=== PATIENT | female | born 1955 | race Asian ===

== ENCOUNTER 2019-05-31 21:58 | Emergency (ER) | payer MEDICAID ==
[~2019-05-31] VITALS: Ht 149.9 cm; Wt 56.3 kg
[2019-05-31] MEDS ORDERED: nitroGLYCERIN 0.4mg SUBLingual tab SL PRN (22:00)
[2019-05-31] MEDS ORDERED: aspirin 81mg tab.chew PO ONE (22:00)
--- NOTE | 2019-05-31 22:11 | NUR ---
HAD IBUPROFEN 600MG AND ASPIRIN AT HOME. 81 MG EC
[2019-05-31] MEDS ORDERED: ondansetron/PF 4mg/2ml inj IV ONE (22:15)
[2019-05-31] MEDS ORDERED: morphine 4 MG/ML inj SYRINge IV PRN (22:15)
[2019-05-31] MEDS ORDERED: normal saline 1000ML IV soln IVB ONE (22:15)
[2019-05-31] MEDS ORDERED: MELO-100 PO (22:20)
[2019-05-31] MEDS ORDERED: IBUP-1984 PO (22:20)
[2019-05-31] MEDS ORDERED: GABA-530 PO (22:20)
[2019-05-31] MEDS ORDERED: ASPI-611 PO (22:20)
[2019-05-31 22:29] LABS: BASOPHILS # (AUTO) 0.1 X10'3 (0-0.2); BASOPHILS % (AUTO) 0.6 % (0-1); EOSINOPHILS # (AUTO) 0.1 X10'3 (0-0.9); EOSINOPHILS % (AUTO) 0.6 % (0-6); HEMATOCRIT 42.3 % (35.0-45.0); HEMOGLOBIN 13.8 g/dl (12.0-16.0); LYMPHOCYTES # (AUTO) 2.3 X10'3 (1.1-4.8); MEAN CORPUSCULAR HEMOGLOBIN 27.7 PG (27.0-31.0); MEAN CORPUSCULAR HGB CONC 32.7 g/dL (33.0-36.5); MEAN CORPUSCULAR VOLUME 84.8 FL (78-98); MONOCYTES # (AUTO) 0.9 X10'3 (0-0.9); MONOCYTES % (AUTO) 8.3 % (2-12); NEUTROPHILS # (AUTO) 7.1 X10'3 (1.8-7.7); NEUTROPHILS % (AUTO) 68.5 % (42-75); PLATELET COUNT 202 X10'3 (140-440); RED BLOOD COUNT 4.99 X10'6 (4.20-5.60); RED CELL DISTRIBUTION WIDTH 14.4 % (11.5-14.5); WHITE BLOOD COUNT 10.4 X10'3 (4.5-11.0)
[2019-05-31 22:36] LABS: ALANINE AMINOTRANSFERASE 18 U/L (12-78); ALBUMIN 3.4 G/DL (3.4-5.0); ALBUMIN/GLOBULIN RATIO 0.9 (1.1-1.5); ALKALINE PHOSPHATASE 126 IU/L (46-116); ANION GAP 13 (8-16); ASPARTATE AMINO TRANSFERASE 13 U/L (10-37); BILIRUBIN,TOTAL 0.6 MG/DL (0.1-1.0); BLOOD UREA NITROGEN 16 MG/DL (7-18); BUN/CREATININE RATIO 19.8 (6.6-38.0); CALCIUM 9.1 MG/DL (8.5-10.1); CHLORIDE 108 MMOL/L (99-107); CREATININE 0.81 MG/DL (0.40-0.90); GLUCOSE 151 MG/DL (70-104); POTASSIUM 3.2 MMOL/L (3.5-5.1); SODIUM 143 MMOL/L (135-145); TOTAL CARBON DIOXIDE 22.4 MMOL/L (24-32); TOTAL PROTEIN 7.1 G/DL (6.4-8.2); eGFR 71 ML/MIN
[2019-05-31 22:44] LABS: LIPASE 182 U/L (73-393); MAGNESIUM 1.6 MG/DL (1.5-2.4)
[2019-05-31] MEDS ORDERED: potassium Cl 20 mEq SR tablet PO STA (23:19)
[2019-05-31] MEDS ORDERED: famotidine/PF 10 mg/ml inj IV ONE (23:20)
[2019-05-31] MEDS ORDERED: pantoprazole 40 MG vial IV ONE (23:20)
[2019-05-31] MEDS ORDERED: ONDA4TAB6 PO (23:23)
[2019-05-31] MEDS ORDERED: FAMO20TA44 PO (23:23)
[2019-05-31] MEDS ORDERED: SUCR1TAB34 PO (23:23)
[2019-05-31] MEDS ORDERED: OMEP20CA11 PO (23:23)
[2019-05-31 23:43] VITALS: BP 105/59
== END 2019-05-31 23:44 | disposition home or self-care (01) ==
LOC: ER 21:59
DX: K29.00 Acute gastritis without bleeding (principal); Z79.82 Long term (current) use of aspirin; Z79.899 Other long term (current) drug therapy; Z95.1 Presence of aortocoronary bypass graft
CPT/HCPCS: 36415; 71045; 74176; 80053; 83605; 83690; 83735; 83880; 84484; 85025; 93005; 96361; 96374; 96375; 99284; C9113; J2270; J2405; J3490; J7030